=== PATIENT | male | born 1935 ===

== ENCOUNTER 2016-09-27 06:06 | Day surgery (SDC) | payer MEDICARE, OTHER ==
[~2016-09-27] VITALS: Ht 170.2 cm; Wt 92.0 kg
[2016-09-27] VITALS (12 sets, daily range): BP systolic 144–171; BP diastolic 68–90
[~2016-09-27 06:06] MED LIST: ceFAZolin 1gm in D5W 55ml IVP ONE; ceFAZolin 1gm/50ml Premix 50 ML IV SCH
[2016-09-27] MEDS ORDERED: BRILINTA90 MG PO (06:52)
[2016-09-27] MEDS ORDERED: ASPIRIN81 MG ORAL (06:52)
[2016-09-27] MEDS ORDERED: CARVEDILOL25 MG ORAL (06:52)
[2016-09-27] MEDS ORDERED: ATORVASTATIN CA20 MG ORAL (06:52)
[2016-09-27] MEDS ORDERED: CEFUROXIME250 MG PO (06:52)
[2016-09-27] MEDS ORDERED: TAMSULOSIN HCL0.4 MG ORAL (06:52)
[2016-09-27] MEDS ORDERED: ceFAZolin sod 1 GM in NS 55 ML IVPB ONE (07:00)
[2016-09-27] MEDS ORDERED: Iothalamate Meglumine 60% 30ML INJ ONE (07:08)
[2016-09-27] MEDS ORDERED: Propofol 10mg/ml 20ml IV ONE (07:30)
[2016-09-27] MEDS ORDERED: ePHEDrine 50mg/ml Inj ONE (07:30)
[2016-09-27] MEDS ORDERED: LR 1000ml ONE (07:30)
[2016-09-27] MEDS ORDERED: Midazolam 2mg/2ml Inj ONE (07:30)
[2016-09-27] MEDS ORDERED: fentaNYL 100 mcg/2 mL IV ONE (07:30)
[2016-09-27] MEDS ORDERED: NS Irrig 4000ml IRRIG ONE (07:40)
--- NOTE | 2016-09-27 07:46 | Pre-Procedure Note/Attestation ---
Pre-Procedure Note/Attestation Complete Prior to Procedure Planned Procedure: right Procedure Narrative: ESWL RIRS Right, Stent Placement Indications for Procedure Pre-Operative Diagnosis: right ureteral stone Attestation I attest that I discussed the nature of the procedure; its benefits; risks and complications; and alternatives (and the risks and benefits of such alternatives ), prior to the procedure, with the patient (or the patient's legal artist representative). I attest that, if there was a reasonable possibility of needing a blood transfusion, the patient (or the patient's legal artist representative) was given the [facility] standardized written summary, pursuant to the [place] Blood Safety Act ([place] Health and Safety Code # 1645, as amended). I attest that I re-evaluated the patient just prior to the surgery and that there has been no change in the patient's H&P, except as documented below: Edmund Ojeda MD Sep 27, 2016 07:46
[2016-09-27] MEDS ORDERED: LR 1000ml 1,000 ML IVLG SCH (08:25)
--- NOTE | 2016-09-27 08:25 | Anethesia Preoperative Eval ---
Anesthesia Pre-op PMH/ROS General Date of Evaluation: Sep 27, 2016 Time of Evaluation: 07:12 Anesthesiologist: Jacob ASA Score: ASA 3 Mallampati Score Class I : Soft palate, uvula, fauces, pillars visible Class II: Soft palate, uvula, fauces visible Class III: Soft palate, base of uvula visible Class IV: Only hard plate visible Mallampati Classification: Class III Surgeon: Lynette Diagnosis: R kidney stone Surgical Procedure: R kidney ESWL with laser Anesthesia History: none Family History: no anesthesia problems Allergies: Coded Allergies: No Known Allergies (Unverified , 09/19/16) Medications: see eMAR Past Medical History Cardiovascular: Reports: CAD, HTN, [place] - 6+ months ago coronary stents x 2, Denies: arrhythmia, other, valve dz Pulmonary: Reports: JOHNNY, Denies: COPD, asthma, other Gastrointestinal/Genitourinary: Reports: CRI, GERD, Denies: ESRD, other Neurologic/Psychiatric: Denies: CVA, TIA, dementia, depression/anxiety, other Endocrine: Denies: DM, hypothyroidism, other, steroids HEENT: Denies: COMANCHE (L), COMANCHE (R), cataract (L), cataract (R), glaucoma, other Hematology/Immune: Reports: anemia, Denies: DVT, bleeding disorder, other Musculoskeletal/Integumentary: Reports: DJD, Denies: DDD, OA, RA, edema, other Other: obesity PMH Narrative: as above PSxH Narrative: Hernia repair, lithotripsy, coronary stents placement Anesthesia Pre-op Phys. Exam Physician Exam Last Vital Signs Date Time Temp Pulse Resp B/P Pulse Ox O2 Delivery O2 Flow Rate FiO2 09/27/16 06:54 97.9 63 18 152/89 98 Room Air Constitutional: NAD Neurologic: CN 2-12 intact Cardiovascular: RRR, no M/R/G Respiratory: CTA Gastrointestinal: other - obesity Airway Exam Mallampati Score: Class III MO: limited Neck: stiff ROM: limited Teeth: missing Dentures: lower, upper Anesthesia Pre-op A/P Labs see chart Studies Pre-op Studies: EKG - SR Risk Assessment & Plan Assessment: ASA 3 Plan: GA with LMA Status Change Before Surgery: No Pre-Antibiotics Drug: Ancef 1 gr. Given Within 1 Hr of Incision: Yes Time Given: 08:10 VAKULENKO,BRAIN, M.D. Sep 27, 2016 08:25
[2016-09-27] MEDS ORDERED: DiphenhydrAMINE 50mg/ml Inj IVP PRN (08:30)
[2016-09-27] MEDS ORDERED: fentaNYL 100 mcg/2 mL IV PRN (08:30)
--- NOTE | 2016-09-27 09:27 | Brief Operative Note ---
Immediate Post Operative Note Operative Note Pre-op Diagnosis: right ureteral stone Procedure: eswl, rirs stent placement Post-op Diagnosis: ureteral stome and tumor Surgeon: Hill Ojeda Anesthesia: general Specimen: yes Complications: none Condition: stable Estimated Blood Loss: minimal Implant(s) used?: No Edmund Ojeda MD Sep 27, 2016 09:27
[2016-09-27] MEDS ORDERED: Tylenol #3 tab (300mg/30mg) ORAL PRN (09:30)
[2016-09-27] MEDS ORDERED: Norco 5mg/325mg tab ORAL PRN (09:30)
[2016-09-27] MEDS ORDERED: D5 1/2NS 1,000 ML IV SCH (09:30)
[2016-09-27] MEDS ORDERED: HYDROmorphone 1mg/ml Carpuject SUBQ PRN (09:30)
--- NOTE | 2016-09-27 10:43 | Immediate Post-Op Evaluation ---
Immediate Post-Op Evalulation Immediate Post-Op Evalulation Procedure: R kidney stone lithotrypsy Date of Evaluation: Sep 27, 2016 Time of Evaluation: 09:36 IV Fluids: 1000 Blood Products: none Estimated Blood Loss: 50 Urinary Output: n/a Blood Pressure Systolic: 126 Blood Pressure Diastolic: 72 Pulse Rate: 64 Respiratory Rate: 20 O2 Sat by Pulse Oximetry: 99 Temperature (Fahrenheit): 97.6 Pain Score (1-10): 2 Nausea: No Vomiting: No Complications none Patient Status: reacts, patent, none Hydration Status: adequate BRAIN SOOD M.D. Sep 27, 2016 10:43
--- NOTE | 2016-09-27 13:41 | 48 Hour Post Anesthesia Eval ---
Post Anesthesia Evaluation Procedure: R kidney stone lithotrypsy Date of Evaluation: Sep 27, 2016 Time of Evaluation: 13:40 Blood Pressure Systolic: 146 0: 72 Pulse Rate: 62 Respiratory Rate: 20 Temperature (Fahrenheit): 97.6 O2 Sat by Pulse Oximetry: 99 Airway: patent Nausea: No Vomiting: No Pain Intensity: 2 Hydration Status: adequate Cardiopulmonary Status: stable Mental Status/LOC: patient returned to baseline Follow-up Care/Observations: n/a Post-Anesthesia Complications: none Follow-up care needed: ready to discharge BRAIN SOOD M.D. Sep 27, 2016 13:41
--- NOTE | 2016-09-29 00:02 | Operative Note - Dictated ---
DATE OF OPERATION: 09/27/2016 PREOPERATIVE DIAGNOSIS: Right ureteral stone. POSTOPERATIVE DIAGNOSIS: Right ureteral stone. OPERATION: 1. Cystoscopy, retrograde intrarenal surgery combined with extracorporeal shock wave lithotripsy. 2. Biopsy of soft tissue lesion in the right ureter. 3. Stent placement. 4. Retrograde pyelogram. SURGEON: Edmund Ojeda M.D. ANESTHESIA: General. FINDINGS: Stone in the upper ureter as well as a soft tissue mass in the mid right ureter. INDICATIONS FOR SURGERY: The patient came with acute renal colic. CT urogram showed massive hydronephrosis and stone obstructing the ureter. Treatment options were explained to him in great length including all potential complications. He signed a consent. OPERATIVE NOTE: He was brought to the operating room, placed in the lithotomy position, and prepped and draped in standard fashion under general anesthesia. Cystoscope was introduced into the bladder. Bladder was normal. Right ureter was cannulated, semi-rigid and then flexible ureteroscope was introduced into the right ureter. Ureter was dilated from the iliac vessels . At first passage, there was no evidence of stone inside except for embedded mass into the right ureter, which was biopsied with a Nitinol basket and sent for pathologic examination to rule out transitional carcinoma. Further inspection of the kidney showed no evidence of stones in the kidney. On the passage back with the scope, we noted some embedded portion of the stone in the upper portion of the ureter which was somewhat dislodged and removed with extracorporeal shockwave lithotripsy. Further inspection showed no evidence of residual stone, double-J stent, and Danish was placed and left indwelling. Retrograde were normal. The patient tolerated the procedure well and transferred to recovery room in stable condition. Sponge count and instrument count was correct. Edmund Ojeda M.D. DR: TREVIN JOB#: [id number] CC:
== END 2016-09-27 13:00 | disposition home or self-care (01) ==
LOC: SUR 06:06
DX: N13.2 Hydronephrosis with renal and ureteral calculous obstruction (principal); I25.10 Atherosclerotic heart disease of native coronary artery without angina pectoris; Z95.5 Presence of coronary angioplasty implant and graft; I25.2 Old myocardial infarction; I12.9 Hypertensive chronic kidney disease with stage 1 through stage 4 chronic kidney disease, or unspecified chronic kidney disease; N18.9 Chronic kidney disease, unspecified; I73.9 Peripheral vascular disease, unspecified; E66.01 Morbid (severe) obesity due to excess calories; E78.5 Hyperlipidemia, unspecified; E53.8 Deficiency of other specified B group vitamins; G47.33 Obstructive sleep apnea (adult) (pediatric); M19.90 Unspecified osteoarthritis, unspecified site; G47.00 Insomnia, unspecified; G62.9 Polyneuropathy, unspecified; K21.9 Gastro-esophageal reflux disease without esophagitis; N40.0 Benign prostatic hyperplasia without lower urinary tract symptoms; H91.90 Unspecified hearing loss, unspecified ear; Z86.718 Personal history of other venous thrombosis and embolism; Z79.82 Long term (current) use of aspirin; Z79.899 Other long term (current) drug therapy
CPT/HCPCS: 50590; 52332; 52354; J1940; J2250; J2704; J3010; J7120; Q9961; 94003; 94150

== ENCOUNTER 2016-11-15 07:16 | Day surgery (SDC) | payer MEDICARE, OTHER ==
[~2016-11-15] VITALS: Ht 175.3 cm; Wt 90.7 kg
[2016-11-15] VITALS (11 sets, daily range): BP systolic 138–148; BP diastolic 73–85
[~2016-11-15 07:16] MED LIST changes: +ASPIRIN81 MG ORAL; +ATORVASTATIN CA20 MG ORAL; +BRILINTA90 MG PO; +CARVEDILOL25 MG ORAL; +CEFUROXIME250 MG PO; +TAMSULOSIN HCL0.4 MG ORAL; -ceFAZolin 1gm in D5W 55ml IVP ONE; +ceFAZolin 1gm/50ml Premix 50 ML IV ONE; -ceFAZolin 1gm/50ml Premix 50 ML IV SCH
[2016-11-15] MEDS ORDERED: bayer (07:51)
--- NOTE | 2016-11-15 09:13 | Pre-Procedure Note/Attestation ---
Pre-Procedure Note/Attestation Complete Prior to Procedure Planned Procedure: right Procedure Narrative: ESWL RIRS LASER RIGHT KIDNEY Indications for Procedure Pre-Operative Diagnosis: ureteral stone Attestation I attest that I discussed the nature of the procedure; its benefits; risks and complications; and alternatives (and the risks and benefits of such alternatives ), prior to the procedure, with the patient (or the patient's legal surgical sales representative). I attest that, if there was a reasonable possibility of needing a blood transfusion, the patient (or the patient's legal surgical sales representative) was given the [facility] standardized written summary, pursuant to the [place] Blood Safety Act ([place] Health and Safety Code # 1645, as amended). I attest that I re-evaluated the patient just prior to the surgery and that there has been no change in the patient's H&P, except as documented below: Edmund Ojeda MD Nov 15, 2016 09:13
[2016-11-15] MEDS ORDERED: Iothalamate Meglumine 60% 30ML INJ ONE (09:19)
[2016-11-15] MEDS ORDERED: LR 1000ml ONE (09:30)
[2016-11-15] MEDS ORDERED: ePHEDrine 50mg/ml Inj ONE (09:30)
[2016-11-15] MEDS ORDERED: Lidocaine 1% MPF 10mg/ml 5ml ONE (09:30)
[2016-11-15] MEDS ORDERED: NS Irrig 1000ml ONE (09:30)
[2016-11-15] MEDS ORDERED: Sterile Water Irrig 1000ml IRRIG ONE (09:30)
[2016-11-15] MEDS ORDERED: Metoclopramide 10mg/2ml Inj ONE (09:30)
[2016-11-15] MEDS ORDERED: fentaNYL 100 mcg/2 mL IV ONE (09:30)
[2016-11-15] MEDS ORDERED: Propofol 200mg/20ml IV ONE (09:30)
[2016-11-15] MEDS ORDERED: NS Irrig 4000ml IRRIG ONE (10:00)
--- NOTE | 2016-11-15 10:31 | Anethesia Preoperative Eval ---
Anesthesia Pre-op PMH/ROS General Date of Evaluation: Nov 15, 2016 Time of Evaluation: 10:29 Anesthesiologist: jessie ASA Score: ASA 3 Mallampati Score Class I : Soft palate, uvula, fauces, pillars visible Class II: Soft palate, uvula, fauces visible Class III: Soft palate, base of uvula visible Class IV: Only hard plate visible Mallampati Classification: Class III Surgeon: Lynette Diagnosis: Kidney stones Surgical Procedure: ESWL/Laser Anesthesia History: none Family History: no anesthesia problems Allergies: Coded Allergies: No Known Allergies (Unverified , 09/19/16) Medications: see eMAR Past Medical History Cardiovascular: Reports: CAD, [place], other - cardiac stents Pulmonary: Reports: JOHNNY Gastrointestinal/Genitourinary: Reports: GERD, CRI Neurologic/Psychiatric: Denies: dementia, CVA, depression/anxiety, TIA, other Endocrine: Denies: DM, hypothyroidism, steroids, other HEENT: Denies: cataract (L), cataract (R), glaucoma, INUPIAT (L), INUPIAT (R), other Hematology/Immune: Reports: anemia Musculoskeletal/Integumentary: Reports: DJD PSxH Narrative: ESWL Anesthesia Pre-op Phys. Exam Physician Exam Last Vital Signs Date Time Temp Pulse Resp B/P (MAP) Pulse Ox O2 Delivery O2 Flow Rate FiO2 11/15/16 07:57 97.0 61 17 140/85 100 Room Air Constitutional: NAD Neurologic: CN 2-12 intact Cardiovascular: RRR Respiratory: CTA Gastrointestinal: S/NT/ND Airway Exam Mallampati Score: Class III MO: limited ROM: limited Dentures: no upper, no lower Anesthesia Pre-op A/P Studies Pre-op Studies: EKG - SR Risk Assessment & Plan Assessment: Moroccan speaking gentleman, denies cp or changes in health since last ESWL, communicates via relocation director Plan: GA LMA Status Change Before Surgery: No Pre-Antibiotics Drug: ancef Given Within 1 Hr of Incision: Yes Time Given: 09:50 EVARISTO VELAZCO CRNA Nov 15, 2016 10:31
--- NOTE | 2016-11-15 11:12 | Brief Operative Note ---
Immediate Post Operative Note Operative Note Pre-op Diagnosis: ureteral stone Procedure: Eswl RIRS stent placement right Post-op Diagnosis: same Surgeon: Hill Najera Anesthesia: general Specimen: none Complications: none Condition: stable Fluids: 500 Estimated Blood Loss: minimal Drains: none Implant(s) used?: No Edmund Ojeda MD Nov 15, 2016 11:12
[2016-11-15] MEDS ORDERED: Tylenol #3 tab (300mg/30mg) ORAL PRN (11:15)
[2016-11-15] MEDS ORDERED: Norco 5mg/325mg tab ORAL PRN (11:15)
[2016-11-15] MEDS ORDERED: D5 1/2NS 1,000 ML IV SCH (11:15)
--- NOTE | 2016-11-15 11:25 | Immediate Post-Op Evaluation ---
Immediate Post-Op Evalulation Immediate Post-Op Evalulation Procedure: ESWL Date of Evaluation: Nov 15, 2016 Time of Evaluation: 11:24 IV Fluids: 800 Blood Pressure Systolic: 140 Blood Pressure Diastolic: 74 Pulse Rate: 78 Respiratory Rate: 14 O2 Sat by Pulse Oximetry: 100 Temperature (Fahrenheit): 97.9 Pain Score (1-10): 0 Nausea: No Vomiting: No Complications none Patient Status: awake, reacts, patent Hydration Status: adequate Drug: ancef Given Within 1 Hr of Incision: Yes Time Given: 09:50 EVARISTO VELAZCO CRNA Nov 15, 2016 11:25
--- NOTE | 2016-11-15 12:02 | 48 Hour Post Anesthesia Eval ---
Post Anesthesia Evaluation Procedure: ESWL Date of Evaluation: Nov 15, 2016 Time of Evaluation: 12:01 Blood Pressure Systolic: 145 0: 78 Pulse Rate: 79 Respiratory Rate: 14 O2 Sat by Pulse Oximetry: 100 Airway: patent Nausea: No Vomiting: No Pain Intensity: 0 Hydration Status: adequate Cardiopulmonary Status: stable Mental Status/LOC: patient returned to baseline Follow-up Care/Observations: per urology Post-Anesthesia Complications: none Follow-up care needed: N/A EVARISTO VELAZCO CRNA Nov 15, 2016 12:02
--- NOTE | 2016-11-21 00:45 | Operative Note - Dictated ---
DATE OF OPERATION: 11/15/2016 PREOPERATIVE DIAGNOSIS: Right mid ureteral stone. OPERATION: Cystoscopy, retrograde pyelogram, flexible and rigid ureteroscopy combined with extracorporeal shock wave lithotripsy, double J stent placement. POSTOPERATIVE DIAGNOSIS: Cystoscopy, retrograde pyelogram, flexible and rigid ureteroscopy combined with extracorporeal shock wave lithotripsy, double J stent placement. SLUDGE FILTRATION OPERATOR: Edmund Ojeda M.D. ANESTHESIA: General. FINDINGS: Embedded stone in the right mid ureter, hydronephrosis. INDICATIONS FOR SURGERY: The patient is well known to me with recurrent stones. He had a procedure approximately months ago with difficulty embedded stone in right ureter. Partial stone fragmentation was accomplished. Double J stent was placed. The patient had repeat of CT scan of the abdomen that showed some residual stone in the distal ureter. Treatment option was explained to him in great length including all potential complications of surgery as well as the benefits and he agreed to have a secondary procedure for removal of the stone. The patient was brought to the operating room, placed in lithotomy position, prepped and draped in the standard fashion. Under general anesthesia, cystoscope was introduced into the bladder. Old stent was grasped and removed for pathologic examination. After that, a guidewire was placed into the right kidney and semi-rigid ureteroscope was introduced. The stone was fragmented. The stone was embedded in the mid ureter. I used semi-rigid first and then flexible ureteroscope at 200 micron laser fiber, the stone was fragmented into small pieces and washed out. Further inspection of the kidney and the ureter showed no evidence of residual stone. Double-J stent 26-inch was placed and left indwelling. The patient tolerated the procedure well. No evidence of complications. Edmund Ojeda M.D. DR: ÁNGEL JOB#: [id number] CC:
== END 2016-11-15 14:15 | disposition home or self-care (01) ==
LOC: SUR 07:16
DX: N13.2 Hydronephrosis with renal and ureteral calculous obstruction (principal); I25.10 Atherosclerotic heart disease of native coronary artery without angina pectoris; I25.2 Old myocardial infarction; Z95.5 Presence of coronary angioplasty implant and graft; K21.9 Gastro-esophageal reflux disease without esophagitis; G47.33 Obstructive sleep apnea (adult) (pediatric); M19.90 Unspecified osteoarthritis, unspecified site
CPT/HCPCS: 52356; J0690; J1940; J2405; J2704; J2765; J3010; J7120; Q9961; 94003; 94150